=== PATIENT | male | born 1945 | race Caucasian/White ===

== ENCOUNTER 2020-12-03 10:49 | Emergency (ER) | payer SELFPAY ==
[2020-12-03] MEDS ORDERED: Dexamethasone 10 MG/ML SDV IVPUSH ONE (10:54)
[2020-12-03] MEDS ORDERED: Sodium Chloride 0.9% 1,000 ML IV ONE ×4 (10:54→18:52)
[2020-12-03] MEDS ORDERED: Sodium Chloride 0.9% 2.5 ML Syringe FLUSH PRN (10:54)
[2020-12-03] MEDS ORDERED: Sodium Chloride 0.9% 10 ML Syringe FLUSH PRN (10:54)
--- NOTE | 2020-12-03 10:57 | EDM.PDOC ---
ED HPI GENERAL MEDICAL PROBLEM - General Chief Complaint: Respiratory Problem Stated Complaint: EMS ARRIVAL Time Seen by Provider: 12/03/20 10:54 Source of Information: Reports: Patient, EMS History Limitations: Reports: Altered Mental Status - History of Present Illness INITIAL COMMENTS - FREE TEXT/NARRATIVE: 75-year-old male unclear past medical history presents for generalized weakness and altered mental status in the setting of known COVID-19 infection. Patient is currently a a and O x1 and not able to provide additional history. History is from EMS. Patient is staying at a local hotel and had not been heard from for a couple of days prompting a wellness check by police. Patient was found altered. Patient was apparently diagnosed with COVID-19 last week. Exact date is unknown. Patient is denying shortness of breath, chest pain. He has however not really giving a good history. Per EMS patient was saturating in the 70s on room air on their arrival. He was placed on a 15 L nonrebreather with improvement of saturation to the 90s. He was also noted to be hypotensive with systolic 90s. He was tachycardic to the low 100s. - Related Data Allergies Allergy/AdvReac Type Severity Reaction Status Date / Time Unable to Assess Allergy Unverified 12/03/20 11:25 Home Meds: Home Meds . [Unable to Verify Home Med List] 12/03/20 [History] ED ROS GENERAL - Review of Systems Review Of Systems: Comprehensive ROS is negative, except as noted in HPI. ED EXAM, GENERAL - Physical Exam Exam: See Below Exam Limited By: No Limitations General Appearance: Alert, WD/WN, No Apparent Distress Ears: Hearing Grossly Normal Throat/Mouth: Normal Voice, No Airway Compromise Head: Atraumatic, Normocephalic Neck: Normal Inspection Respiratory/Chest: Lungs Clear, Normal Breath Sounds, No Accessory Muscle Use, Other (tachypneic) Cardiovascular: Normal Peripheral Pulses, No Edema, Tachycardia, Other (poor capillary refill) GI/Abdominal: Soft, Non-Tender Extremities: Normal Inspection Neurological: Alert Psychiatric: Normal Affect, Normal Mood Skin Exam: Warm, Dry, Intact, Normal Color #1 Interpretation EKG Date: 12/03/20 Time: 10:55 Rhythm: NSR Rate (Beats/Min): 107 [place]: Normal P-Wave: Present QRS: Normal ST-T: Normal QT: Normal [place]/PQ Interval: 192 Comparison: NA - No Prior EKG EKG Interpretation Comments: sinus tachycardia Course - Vital Signs Last Recorded V/S: Last Vital Signs Temp 98.2 F 12/03/20 10:49 Pulse 103 H 12/03/20 16:47 Resp 18 12/03/20 16:47 BP 115/93 H 12/03/20 16:47 Pulse Ox 94 L 12/03/20 16:47 - Orders/Labs/Meds Orders: Active Orders 24 hr Category Date Time Status Cardiac Monitoring [RC] . DIRECTED Care 12/03/20 10:55 Active Insert Rodarte Catheter [Insert Urinary Catheter] [OM.PC] Care 12/03/20 11:45 Ordered Q24H Pulse Oximetry [RC] ASDIRECTED Care 12/03/20 10:55 Active Urinary Catheter Assessment [RC] ASDIRECTED Care 12/03/20 11:37 Active Sodium Chloride 0.9% [Saline Flush] Med 12/03/20 10:54 Active 10 ml FLUSH ASDIRECTED PRN Sodium Chloride 0.9% [Saline Flush] Med 12/03/20 10:54 Active 2.5 ml FLUSH ASDIRECTED PRN Saline Lock Insert [OM.PC] Stat Oth 12/03/20 10:55 Ordered Medication Orders Sodium Chloride (Sodium Chloride 0.9% 10 Ml Syringe) 10 ml FLUSH ASDIRECTED PRN PRN Reason: Keep Vein Open Last Admin: 12/03/20 11:04 Dose: 10 ml Documented by: RICHARD Sodium Chloride (Sodium Chloride 0.9% 2.5 Ml Syringe) 2.5 ml FLUSH ASDIRECTED PRN PRN Reason: Keep Vein Open Last Admin: 12/03/20 11:04 Dose: 2.5 ml Documented by: RICHARD Labs: Laboratory Tests 12/03/20 12/03/20 12/03/20 Range/Units 10:55 10:59 10:59 WBC 9.10 (4.0-11.0) K/uL RBC 4.29 L (4.50-5.90) M/uL Hgb 14.4 (13.0-17.0) g/dL Hct 39.0 (38.0-50.0) % MCV 90.9 (80.0-98.0) fL MCH 33.6 H (27.0-32.0) pg MCHC 36.9 (31.0-37.0) g/dL RDW Std Deviation 45.7 (28.0-62.0) fl RDW Coeff of Kris 14 (11.0-15.0) % Plt Count 126 L (150-400) K/uL MPV 12.80 H (7.40-12.00) fL Add Manual Diff YES Neutrophils % (Manual) 85 H (48.0-80.0) % Band Neutrophils % 1 % Lymphocytes % (Manual) 11 L (16.0-40.0) % Monocytes % (Manual) 3 (0.0-15.0) % Nucleated RBC % 0.0 /100WBC Absolute Seg Neuts 7.7 H (1.4-5.7) Band Neutrophils # 0.1 Lymphocytes # (Manual) 1.0 (0.6-2.4) Monocytes # (Manual) 0.3 (0.0-0.8) Nucleated RBCs # 0 K/uL INR APTT (18.6-31.3) SEC D-Dimer, Quantitative (0.0-0.50) mg/L FEU ABG pH 7.32 L (7.35-7.45) ABG pCO2 19 L (35-45) mmHG ABG pO2 199 H (80-105) mmHG ABG HCO3 10 L (22-26) mEq/L ABG Total CO2 10 L (23-27) mmol/L ABG Base Excess -14.0 L (-2.0-3.0) Sodium (136-148) mmol/L Potassium (3.5-5.1) mmol/L Chloride (98-107) mmol/L Carbon Dioxide (21.0-32.0) mmol/L BUN (7.0-18.0) mg/dL Creatinine (0.8-1.3) mg/dL Est Cr Clr Drug Dosing mL/min Estimated GFR (MDRD) ml/min Glucose (74-106) mg/dL Lactic Acid 2.4 H* (0.4-2.0) mmol/L Calcium (8.5-10.1) mg/dL Magnesium (1.8-2.4) mg/dL Total Bilirubin (0.2-1.0) mg/dL AST (15-37) IU/L ALT (14-63) IU/L Alkaline Phosphatase (46-116) U/L Troponin I (0.000-0.056) ng/mL C-Reactive Protein (0.00-0.90) mg/dL B-Natriuretic Peptide (<100) PG/ML Total Protein (6.4-8.2) g/dL Albumin (3.4-5.0) g/dL Globulin (2.6-4.0) g/dL Albumin/Globulin Ratio (0.9-1.6) Urine Color Urine Appearance Urine pH (5.0-8.0) Ur Specific Mary D (1.001-1.035) Urine Protein (NEGATIVE) mg/dL Urine Glucose (UA) (NEGATIVE) mg/dL Urine Ketones (NEGATIVE) mg/dL Urine Occult Blood (NEGATIVE) Urine Nitrite (NEGATIVE) Urine Bilirubin (NEGATIVE) Urine Urobilinogen (<2.0) EU/dL Ur Leukocyte Esterase (NEGATIVE) U Hyaline Cast (Auto) (0-2/LPF) Urine RBC (0-2/HPF) Urine WBC (0-5/HPF) Ur Epithelial Cells (NONE-FEW) Amorphous Sediment (NEGATIVE) Urine Bacteria (NEGATIVE) 12/03/20 12/03/20 12/03/20 Range/Units 10:59 10:59 10:59 WBC (4.0-11.0) K/uL RBC (4.50-5.90) M/uL Hgb (13.0-17.0) g/dL Hct (38.0-50.0) % MCV (80.0-98.0) fL MCH (27.0-32.0) pg MCHC (31.0-37.0) g/dL RDW Std Deviation (28.0-62.0) fl RDW Coeff of Kris (11.0-15.0) % Plt Count (150-400) K/uL MPV (7.40-12.00) fL Add Manual Diff Neutrophils % (Manual) (48.0-80.0) % Band Neutrophils % % Lymphocytes % (Manual) (16.0-40.0) % Monocytes % (Manual) (0.0-15.0) % Nucleated RBC % /100WBC Absolute Seg Neuts (1.4-5.7) Band Neutrophils # Lymphocytes # (Manual) (0.6-2.4) Monocytes # (Manual) (0.0-0.8) Nucleated RBCs # K/uL INR 1.10 APTT 34.5 H (18.6-31.3) SEC D-Dimer, Quantitative 0.36 (0.0-0.50) mg/L FEU ABG pH (7.35-7.45) ABG pCO2 (35-45) mmHG ABG pO2 (80-105) mmHG ABG HCO3 (22-26) mEq/L ABG Total CO2 (23-27) mmol/L ABG Base Excess (-2.0-3.0) Sodium 139 (136-148) mmol/L Potassium 4.3 (3.5-5.1) mmol/L Chloride 97 L (98-107) mmol/L Carbon Dioxide 15.5 L (21.0-32.0) mmol/L BUN 169 H (7.0-18.0) mg/dL Creatinine 19.5 H (0.8-1.3) mg/dL Est Cr Clr Drug Dosing 3.59 mL/min Estimated GFR (MDRD) 2.4 ml/min Glucose 138 H (74-106) mg/dL Lactic Acid (0.4-2.0) mmol/L Calcium 7.9 L (8.5-10.1) mg/dL Magnesium 2.6 H (1.8-2.4) mg/dL Total Bilirubin 0.5 (0.2-1.0) mg/dL AST 112 H (15-37) IU/L ALT 65 H (14-63) IU/L Alkaline Phosphatase 51 (46-116) U/L Troponin I < 0.050 (0.000-0.056) ng/mL C-Reactive Protein 6.50 H (0.00-0.90) mg/dL B-Natriuretic Peptide 4 (<100) PG/ML Total Protein 7.1 (6.4-8.2) g/dL Albumin 3.4 (3.4-5.0) g/dL Globulin 3.7 (2.6-4.0) g/dL Albumin/Globulin Ratio 0.9 (0.9-1.6) Urine Color Urine Appearance Urine pH (5.0-8.0) Ur Specific Mary D (1.001-1.035) Urine Protein (NEGATIVE) mg/dL Urine Glucose (UA) (NEGATIVE) mg/dL Urine Ketones (NEGATIVE) mg/dL Urine Occult Blood (NEGATIVE) Urine Nitrite (NEGATIVE) Urine Bilirubin (NEGATIVE) Urine Urobilinogen (<2.0) EU/dL Ur Leukocyte Esterase (NEGATIVE) U Hyaline Cast (Auto) (0-2/LPF) Urine RBC (0-2/HPF) Urine WBC (0-5/HPF) Ur Epithelial Cells (NONE-FEW) Amorphous Sediment (NEGATIVE) Urine Bacteria (NEGATIVE) 12/03/20 12/03/20 12/03/20 Range/Units 16:34 16:34 17:00 WBC (4.0-11.0) K/uL RBC (4.50-5.90) M/uL Hgb (13.0-17.0) g/dL Hct (38.0-50.0) % MCV (80.0-98.0) fL MCH (27.0-32.0) pg MCHC (31.0-37.0) g/dL RDW Std Deviation (28.0-62.0) fl RDW Coeff of Kris (11.0-15.0) % Plt Count (150-400) K/uL MPV (7.40-12.00) fL Add Manual Diff Neutrophils % (Manual) (48.0-80.0) % Band Neutrophils % % Lymphocytes % (Manual) (16.0-40.0) % Monocytes % (Manual) (0.0-15.0) % Nucleated RBC % /100WBC Absolute Seg Neuts (1.4-5.7) Band Neutrophils # Lymphocytes # (Manual) (0.6-2.4) Monocytes # (Manual) (0.0-0.8) Nucleated RBCs # K/uL INR APTT (18.6-31.3) SEC D-Dimer, Quantitative (0.0-0.50) mg/L FEU ABG pH 7.26 L (7.35-7.45) ABG pCO2 22 L (35-45) mmHG ABG pO2 79 L (80-105) mmHG ABG HCO3 10 L (22-26) mEq/L ABG Total CO2 9.2 L (23-27) mmol/L ABG Base Excess -15.1 L (-2.0-3.0) Sodium 139 (136-148) mmol/L Potassium 4.1 (3.5-5.1) mmol/L Chloride 100 (98-107) mmol/L Carbon Dioxide 14.2 L (21.0-32.0) mmol/L BUN 171 H (7.0-18.0) mg/dL Creatinine 19.4 H (0.8-1.3) mg/dL Est Cr Clr Drug Dosing 3.60 mL/min Estimated GFR (MDRD) 2.4 ml/min Glucose 146 H (74-106) mg/dL Lactic Acid 1.2 (0.4-2.0) mmol/L Calcium 7.2 L (8.5-10.1) mg/dL Magnesium (1.8-2.4) mg/dL Total Bilirubin (0.2-1.0) mg/dL AST (15-37) IU/L ALT (14-63) IU/L Alkaline Phosphatase (46-116) U/L Troponin I (0.000-0.056) ng/mL C-Reactive Protein (0.00-0.90) mg/dL B-Natriuretic Peptide (<100) PG/ML Total Protein (6.4-8.2) g/dL Albumin (3.4-5.0) g/dL Globulin (2.6-4.0) g/dL Albumin/Globulin Ratio (0.9-1.6) Urine Color Urine Appearance Urine pH (5.0-8.0) Ur Specific Mary D (1.001-1.035) Urine Protein (NEGATIVE) mg/dL Urine Glucose (UA) (NEGATIVE) mg/dL Urine Ketones (NEGATIVE) mg/dL Urine Occult Blood (NEGATIVE) Urine Nitrite (NEGATIVE) Urine Bilirubin (NEGATIVE) Urine Urobilinogen (<2.0) EU/dL Ur Leukocyte Esterase (NEGATIVE) U Hyaline Cast (Auto) (0-2/LPF) Urine RBC (0-2/HPF) Urine WBC (0-5/HPF) Ur Epithelial Cells (NONE-FEW) Amorphous Sediment (NEGATIVE) Urine Bacteria (NEGATIVE) 12/03/20 Range/Units 18:13 WBC (4.0-11.0) K/uL RBC (4.50-5.90) M/uL Hgb (13.0-17.0) g/dL Hct (38.0-50.0) % MCV (80.0-98.0) fL MCH (27.0-32.0) pg MCHC (31.0-37.0) g/dL RDW Std Deviation (28.0-62.0) fl RDW Coeff of Kris (11.0-15.0) % Plt Count (150-400) K/uL MPV (7.40-12.00) fL Add Manual Diff Neutrophils % (Manual) (48.0-80.0) % Band Neutrophils % % Lymphocytes % (Manual) (16.0-40.0) % Monocytes % (Manual) (0.0-15.0) % Nucleated RBC % /100WBC Absolute Seg Neuts (1.4-5.7) Band Neutrophils # Lymphocytes # (Manual) (0.6-2.4) Monocytes # (Manual) (0.0-0.8) Nucleated RBCs # K/uL INR APTT (18.6-31.3) SEC D-Dimer, Quantitative (0.0-0.50) mg/L FEU ABG pH (7.35-7.45) ABG pCO2 (35-45) mmHG ABG pO2 (80-105) mmHG ABG HCO3 (22-26) mEq/L ABG Total CO2 (23-27) mmol/L ABG Base Excess (-2.0-3.0) Sodium (136-148) mmol/L Potassium (3.5-5.1) mmol/L Chloride (98-107) mmol/L Carbon Dioxide (21.0-32.0) mmol/L BUN (7.0-18.0) mg/dL Creatinine (0.8-1.3) mg/dL Est Cr Clr Drug Dosing mL/min Estimated GFR (MDRD) ml/min Glucose (74-106) mg/dL Lactic Acid (0.4-2.0) mmol/L Calcium (8.5-10.1) mg/dL Magnesium (1.8-2.4) mg/dL Total Bilirubin (0.2-1.0) mg/dL AST (15-37) IU/L ALT (14-63) IU/L Alkaline Phosphatase (46-116) U/L Troponin I (0.000-0.056) ng/mL C-Reactive Protein (0.00-0.90) mg/dL B-Natriuretic Peptide (<100) PG/ML Total Protein (6.4-8.2) g/dL Albumin (3.4-5.0) g/dL Globulin (2.6-4.0) g/dL Albumin/Globulin Ratio (0.9-1.6) Urine Color DARK YELLOW Urine Appearance CLOUDY Urine pH 5.0 (5.0-8.0) Ur Specific Mary D >= 1.030 (1.001-1.035) Urine Protein 100 H (NEGATIVE) mg/dL Urine Glucose (UA) NEGATIVE (NEGATIVE) mg/dL Urine Ketones TRACE H (NEGATIVE) mg/dL Urine Occult Blood MODERATE H (NEGATIVE) Urine Nitrite NEGATIVE (NEGATIVE) Urine Bilirubin SMALL H (NEGATIVE) Urine Urobilinogen 0.2 (<2.0) EU/dL Ur Leukocyte Esterase TRACE H (NEGATIVE) U Hyaline Cast (Auto) 0-2 (0-2/LPF) Urine RBC 3-6 (0-2/HPF) Urine WBC 5-10 (0-5/HPF) Ur Epithelial Cells FEW (NONE-FEW) Amorphous Sediment MODERATE (NEGATIVE) Urine Bacteria FEW (NEGATIVE) Meds: Medications Generic Name Dose Route Start Last Admin Trade Name Freq PRN Reason Stop Dose Admin Sodium Chloride 10 ml 12/03/20 10:54 12/03/20 11:04 Sodium Chloride 0.9% 10 Ml Syringe FLUSH 10 ml ASDIRECTED PRN Administration Keep Vein Open Sodium Chloride 2.5 ml 12/03/20 10:54 12/03/20 11:04 Sodium Chloride 0.9% 2.5 Ml Syringe FLUSH 2.5 ml ASDIRECTED PRN Administration Keep Vein Open Discontinued Medications Generic Name Dose Route Start Last Admin Trade Name Freq PRN Reason Stop Dose Admin Dexamethasone 6 mg 12/03/20 10:54 12/03/20 11:04 Dexamethasone 10 Mg/Ml Sdv IVPUSH 12/03/20 10:55 6 mg ONETIME ONE Administration Enoxaparin Sodium 100 mg 12/03/20 12:15 12/03/20 15:17 Enoxaparin 100 Mg/1 Ml Syringe SUBCUT 12/03/20 12:16 Not Given ONETIME ONE Sodium Chloride 1,000 mls @ 999 mls/hr 12/03/20 10:54 12/03/20 11:04 Normal Saline IV 12/03/20 11:54 999 mls/hr .Bolus ONE Administration Sodium Chloride 1,000 mls @ 150 mls/hr 12/03/20 11:56 12/03/20 15:20 Normal Saline IV 12/03/20 18:35 999 mls/hr .Bolus ONE Infusion Sodium Chloride 1,000 mls @ 999 mls/hr 12/03/20 14:51 12/03/20 15:19 Normal Saline IV 12/03/20 15:51 999 mls/hr .Bolus ONE Administration - Re-Assessments/Exams Free Text/Narrative Re-Assessment/Exam: 12/03/20 12:13 Labs are remarkable for acute kidney failure. Patient has some sort of penile implant and is declining on a Rodarte catheter. We will transfer to higher level of care for further work-up and management. 12/03/20 16:03 I have reached out to transfer center for help; they are working on finding an available bed. [facility] and [facility] do not have beds. 12/03/20 16:08 [facility] does not have beds 12/03/20 16:11 [facility] does not have beds 12/03/20 16:17 [facility] does not have beds 12/03/20 16:21 [facility] does not have beds 12/03/20 18:44 please contact Danielle Castillo (sister) with updates: [phone] 12/03/20 18:49 [facility] will accept patient, Dr. Bryan. They will call back with a room number. Departure - Departure Time of Disposition: 18:49 Disposition: DC/Tfer to Acute Hospital 02 Condition: Serious Clinical Impression: Acute renal failure Qualifiers: Acute renal failure type: unspecified Qualified Code(s): N17.9 - Acute kidney failure, unspecified - Discharge Information Referrals: PCP,None [Primary Care Provider] - Forms: ED Department Discharge Critical Care Note - Critical Care Note Total Time (mins): 35 Sepsis Event Note (ED) - Focused Exam Vital Signs: Vital Signs Temp Pulse Resp BP Pulse Ox 12/03/20 16:47 103 H 18 115/93 H 94 L 12/03/20 15:39 92 20 97/49 L 96 12/03/20 15:09 98 18 82/53 L 95 12/03/20 14:37 104 H 18 95 12/03/20 14:00 91 20 109/51 L 97 12/03/20 12:38 98 113/55 L 12/03/20 12:22 20 86/46 L 12/03/20 11:37 104 H 16 74/35 L 12/03/20 10:49 98.2 F 106 H 20 88/44 L 96 - My Orders Last 24 Hours: My Active Orders 12/03/20 10:54 Sodium Chloride 0.9% [Saline Flush] 10 ml FLUSH ASDIRECTED PRN Sodium Chloride 0.9% [Saline Flush] 2.5 ml FLUSH ASDIRECTED PRN 12/03/20 10:55 Cardiac Monitoring [RC] . DIRECTED Pulse Oximetry [RC] ASDIRECTED Saline Lock Insert [OM.PC] Stat 12/03/20 11:37 Urinary Catheter Assessment [RC] ASDIRECTED 12/03/20 11:45 Insert Rodarte Catheter [Insert Urinary Catheter] [OM.PC] Q24H - Assessment/Plan Last 24 Hours: My Active Orders 12/03/20 10:54 Sodium Chloride 0.9% [Saline Flush] 10 ml FLUSH ASDIRECTED PRN Sodium Chloride 0.9% [Saline Flush] 2.5 ml FLUSH ASDIRECTED PRN 12/03/20 10:55 Cardiac Monitoring [RC] . DIRECTED Pulse Oximetry [RC] ASDIRECTED Saline Lock Insert [OM.PC] Stat 12/03/20 11:37 Urinary Catheter Assessment [RC] ASDIRECTED 12/03/20 11:45 Insert Rodarte Catheter [Insert Urinary Catheter] [OM.PC] Q24H
[2020-12-03 11:31] LABS: CARBON DIOXIDE,CO2 15.5 mmol/L (21.0-32.0); CHLORIDE,CL 97 mmol/L (98-107); GLUCOSE RANDOM 138 mg/dL (74-106); POTASSIUM,K 4.3 mmol/L (3.5-5.1); SODIUM,NA 139 mmol/L (136-148)
[2020-12-03 11:34] LABS: BLOOD UREA NITROGEN,BUN 169 mg/dL (7.0-18.0)
--- NOTE | 2020-12-03 12:11 | CR ---
INDICATION: Shortness of breath. COVID. TECHNIQUE: Chest 1 view COMPARISON: None FINDINGS: Cardiovascular and mediastinum: Heart size and vasculature are normal in caliber and appearance. Lungs and pleural spaces: Lungs are clear. No sign of infiltrate or mass. No sign of pleural effusion. No pneumothorax. Bones and soft tissues: No significant findings. IMPRESSION: Negative chest. No sign of pneumonia. Dictated by Ej Bowles MD @ 12/03/2020 12:10:17 PM (Electronically Signed)
[2020-12-03] MEDS ORDERED: Enoxaparin 100 MG/1 ML Syringe SUBCUT ONE (12:15)
--- NOTE | 2020-12-03 14:08 | CT ---
HISTORY: COVID. Renal failure. COMPARISON: Chest 1 view, 12/03/2020. TECHNIQUE: CT of the chest. No intravenous contrast. Coronal/sagittal reconstruction images. FINDINGS: There is no mass at the thoracic inlet. There is no pleural or pericardial effusion. There are nonenlarged mediastinal lymph nodes. Arterial, including coronary artery, calcifications. Mild, bilateral gynecomastia. The main pulmonary artery and thoracic aorta are normal in caliber. There is no mass at the thoracic inlet. Lung windows demonstrate bilateral pulmonary infiltrates, which are most confluent in the right lower lobe. There is elevation of the right hemidiaphragm. There is no honeycomb formation. There is no traction bronchiectasis. Peripherally oriented pulmonary opacities, particularly in the left upper lobe and lingular segment, consistent with COVID-19 pneumonia. See image 65, series 203. Similar findings are seen within the right upper lobe, image 46, series 203. Mild collapse of the bronchus intermedius, which can be seen with tracheobronchomalacia. Evaluation of the upper abdomen demonstrates a non cirrhotic liver morphology. No perihepatic ascites. No radiopaque gallstone. No adrenal mass. Mild, bilateral perinephric fat stranding. No drainable perinephric fluid collection. No splenomegaly. No pancreatic mass or glandular atrophy. The bone windows demonstrate no suspicious bone lesions. There is degenerative disc disease throughout the thoracic and upper lumbar spine. The vertebral body heights are maintained on sagittal reconstruction images. IMPRESSION: 1. Peripherally oriented pulmonary opacities in the left lung are consistent with the provided history of COVID-19 pneumonia. 2. Elevation of the right hemidiaphragm, with atelectasis at the right lung base. 3. No honeycomb formation, traction bronchiectasis, or peripheral reticulation. 4. Mild collapse of the bronchus intermedius, which can be seen with tracheobronchomalacia. 5. No thoracic lymphadenopathy. Please note that all CT scans at this facility use dose modulation, iterative reconstruction, and/or weight-based dosing when appropriate to reduce radiation dose to as low as reasonably achievable. Dictated by Kun Vargas MD @ 12/03/2020 2:08:00 PM (Electronically Signed)
--- NOTE | 2020-12-03 14:21 | CT ---
HISTORY: COVID-19 pneumonia. Renal failure. COMPARISON: CT of the chest, 12/03/2020. TECHNIQUE: CT of the abdomen pelvis. No intravenous contrast. Coronal/sagittal reconstruction images. FINDINGS: Lung bases: Coronary artery calcifications. There is no pleural or pericardial effusion. Pulmonary opacities at the lung bases are consist with COVID-19 pneumonia. This was described on the chest CT report of the same date. No basilar pneumothorax. Abdomen/pelvis: The liver morphology is non cirrhotic. There is no perihepatic ascites. No right upper quadrant inflammatory changes. No dilation of intrahepatic biliary radicals. No splenomegaly. No adrenal mass. There is mild perinephric fat stranding. There is no solid renal mass. There is no obstructive urolith. There is no perinephric fluid collection. Seeds in the pelvis, presumably for treatment of adenocarcinoma of the prostate. There is no evidence for a small bowel or colonic obstruction. There is no mural thickening. There is no perienteric edema. There is no transition point. There is no evidence for appendicitis. There is a reservoir in the anterior pelvis, presumably for a penile prosthesis. There is no inguinal or pelvic sidewall lymphadenopathy. The retroperitoneum and gastrohepatic ligament are normal. Advanced degenerative arthrosis of both hips. Spurring is present in both SI joints. There is extensive degenerative disc disease in the thoracolumbar spine. There is an age-indeterminate compression deformity at L4, superior endplate, which may be correlated with physical exam findings to determine acuity. IMPRESSION: 1. No findings are seen to explain renal failure. 2. There is no solid renal mass, hydronephrosis, obstructive urolith, or perinephric fluid collection. 3. [place] in the pelvis adjacent to the anterior pelvic wall, presumably part of an inflatable penile prosthesis. 4. No abdominal or pelvic lymphadenopathy. Please note that all CT scans at this facility use dose modulation, iterative reconstruction, and/or weight-based dosing when appropriate to reduce radiation dose to as low as reasonably achievable. Dictated by Kun Vargas MD @ 12/03/2020 2:18:52 PM (Electronically Signed)
[2020-12-03 16:55] LABS: CARBON DIOXIDE,CO2 14.2 mmol/L (21.0-32.0); POTASSIUM,K 4.1 mmol/L (3.5-5.1)
== END 2020-12-04 00:21 ==
LOC: MW.ED 10:49
DX: N17.9 Acute kidney failure, unspecified (principal)
CPT/HCPCS: 36415; 36600; 51702; 71045; 71250; 74176; 80048; 80053; 81001; 82803; 83605; 83735; 83880; 84484; 85025; 85379; 85610; 85730; 86140; 93005; 96374; 99285; J1100; J7030